=== PATIENT | male | born 1975 | race Caucasian/White ===

== ENCOUNTER 2017-10-25 08:36 | Day surgery (SDC) | payer OTHER ==
[~2017-10-25 08:36] MED LIST: Acetaminophen/HYDROcodone 325-10 MG Tab PO PRN; Ketorolac 10 MG Tab PO PRN; Lactated Ringers 1,000 ML IV SCH; ceFAZolin 2 GM in Premix Bag 1 BAG IV SCH
[2017-10-25] MEDS ORDERED: fentaNYL 250 MCG/5 ML SDV ONE (08:41)
[2017-10-25] MEDS ORDERED: Midazolam 1 MG/ML 2 ML SDV ONE (08:41)
[2017-10-25] MEDS ORDERED: Propofol 200 MG/20 ML SDV ONE (08:41)
[2017-10-25] MEDS ORDERED: Ondansetron 4 MG/2 ML SDV ONE (08:44)
[2017-10-25] MEDS ORDERED: Dexamethasone 4 MG/ML 5 ML MDV ONE (08:44)
[2017-10-25] MEDS ORDERED: Bupivacaine 0.25% 10 ML SDV ONE (09:16)
[2017-10-25] MEDS ORDERED: ceFAZolin/Dextrose,Iso-Osmotic 2 GM/50 ML Duplex Bag IV ONE (09:19)
[2017-10-25] MEDS ORDERED: Phenylephrine 1% 10 MG/ML SDV ONE (09:22)
[2017-10-25] MEDS ORDERED: Rocuronium 10 MG/ML 10 ML Syringe ONE (09:25)
[2017-10-25] MEDS ORDERED: Succinylcholine 200 MG/10 ML MDV ONE (09:25)
[2017-10-25] MEDS ORDERED: Neostigmine Methylsulfate 1 MG/ML 5 ML Syringe ONE (09:26)
[2017-10-25] MEDS ORDERED: Glycopyrrolate 0.2 MG/ML SDV ONE (09:26)
--- NOTE | 2017-10-25 09:35 | PCM.PREANE ---
Preanesthetic Assessment - Procedure Proposed Procedure: left biceps tendon repair - Anesthesia/Transfusion/Family Hx Anesthesia History: Prior Anesthesia Without Reaction Family History of Anesthesia Reaction: No Transfusion History: No Prior Transfusion(s) Intubation History: Unknown - Review of Systems General: No Symptoms Pulmonary: No Symptoms Cardiovascular: No Symptoms Gastrointestinal: Other (GERD) Neurological: Pre-Existing Deficit (left arm pain after extension injury - see HPI) Other: Reports: None - Physical Assessment NPO Status Date: 10/24/17 NPO Status Time: 22:00 O2 Sat by Pulse Oximetry: 98 Respiratory Rate: 20 Vital Signs: Last Vital Signs Temp 99.5 F 10/25/17 08:55 Pulse 63 10/25/17 08:55 Resp 20 10/25/17 08:55 BP 140/74 10/25/17 08:55 Pulse Ox 98 10/25/17 08:55 Height: 5 ft 10 in Weight: 215 lb ASA Class: 2 Mental Status: Alert & Oriented x3 Airway Class: Mallampati = 2 Dentition: Reports: Normal Dentition Thyro-Mental Finger Breadths: 3 Mouth Opening Finger Breadths: 3 ROM/Head Extension: Full Lungs: Clear to Auscultation, Normal Respiratory Effort Cardiovascular: Regular Rate, Regular Rhythm, No Murmurs - Allergies Allergies/Adverse Reactions: Allergies Allergy/AdvReac Type Severity Reaction Status Date / Time No Known Allergies Allergy Verified 10/20/17 11:58 - Blood Blood Available: No Product(s) Available: None - Anesthesia Plan Pre-Op Medication Ordered: None - Acknowledgements Anesthesia Type Planned: General Anesthesia (OET) Pt an Appropriate Candidate for the Planned Anesthesia: Yes Alternatives and Risks of Anesthesia Discussed w Pt/Guardian: Yes Pt/Guardian Understands and Agrees with Anesthesia Plan: Yes PreAnesthesia Questionnaire Gastrointestinal History: Reports: GERD Musculoskeletal History: Reports: Fracture Endocrine/Metabolic History: Reports: Obesity/BMI 30+ - Past Surgical History Head Surgeries/Procedures: Reports: None Musculoskeletal Surgical History: Reports: Other (See Below) Other Musculoskeletal Surgeries/Procedures:: surgical tx for fx left ankle with plate and screws - SUBSTANCE USE Smoking Status *Q: Never Smoker Tobacco Use Within Last Twelve Months: Other (See Below) Days Per Week of Alcohol Use: 7 Number of Drinks Per Day: 5 Total Drinks Per Week: 35 Recreational Drug Use History: No - HOME MEDS Home Medications: Home Meds Omeprazole Magnesium 20 mg PO DAILY 10/20/17 [History] - CURRENT (IN HOUSE) MEDS Current Meds: Current Medications Hydrocodone Bitart/Acetaminophen (Dexter 325-10 Mg) 1 - 2 tab PO Q4H PRN PRN Reason: Pain Fentanyl (Sublimaze) 50 mcg IVPUSH Q5M PRN PRN Reason: Pain (moderate 4-6) Stop: 10/25/17 14:00 Cefazolin Sodium/Dextrose 2 gm (/ Premix) 50 mls @ 100 mls/hr IV ONCALL [facility] Lactated Ringer's (Ringers, Lactated) 1,000 mls @ 100 mls/hr IV ASDIRECTED [facility] Last Admin: 10/25/17 08:55 Dose: 100 mls/hr Ketorolac Tromethamine (Toradol) 10 mg PO Q6H PRN PRN Reason: Pain Stop: 10/30/17 08:01 Discontinued Medications Bupivacaine HCl (Sensorcaine-Mpf 0.25%) Confirm Administered Dose 10 ml .ROUTE .STK-MED ONE Stop: 10/25/17 09:17 Cefazolin Sodium/Dextrose (Ancef) Confirm Administered Dose 2 gm IV .STK-MED ONE Stop: 10/25/17 09:20 Dexamethasone (Dexamethasone) Confirm Administered Dose 20 mg .ROUTE .STK-MED ONE Stop: 10/25/17 08:45 Fentanyl (Sublimaze) Confirm Administered Dose 250 mcg .ROUTE .STK-MED ONE Stop: 10/25/17 08:42 Glycopyrrolate (Robinul) Confirm Administered Dose 0.4 mg .ROUTE .STK-MED ONE Stop: 10/25/17 09:27 Midazolam HCl (Versed 1 Mg/Ml) Confirm Administered Dose 2 mg .ROUTE .STK-MED ONE Stop: 10/25/17 08:42 Neostigmine Methylsulfate (Neostigmine) Confirm Administered Dose 5 mg .ROUTE .STK-MED ONE Stop: 10/25/17 09:27 Ondansetron HCl (Zofran) Confirm Administered Dose 4 mg .ROUTE .STK-MED ONE Stop: 10/25/17 08:45 Phenylephrine HCl (Ryan-Synephrine) Confirm Administered Dose 10 mg .ROUTE .STK- MED ONE Stop: 10/25/17 09:23 Propofol (Diprivan 20 Ml) Confirm Administered Dose 200 mg .ROUTE .STK-MED ONE Stop: 10/25/17 08:42 Rocuronium Condon (Zemuron) Confirm Administered Dose 100 mg .ROUTE .STK-MED ONE Stop: 10/25/17 09:26 Succinylcholine Chloride (Quelicin) Confirm Administered Dose 200 mg .ROUTE .STK -MED ONE Stop: 10/25/17 09:26
[2017-10-25] MEDS: fentaNYL 100 MCG/2 ML SDV IVPUSH PRN ×4 (12:00→12:39)
--- NOTE | 2017-10-25 12:01 | PCM.OPNOTE ---
- General Post-Op/Procedure Note Date of Surgery/Procedure: 10/25/17 Operative Procedure(s): Open repair left distal biceps tendon Post-Op Diagnosis: left distal biceps tendon repair Anesthesia Technique: General ET Tube Primary Surgeon: Abi Mejia Bilingual Hr Generalist: Omayra Contreras Bilingual Hr Generalist: Alexy Goldsmith in mLs: 10 Condition: Good Free Text/Narrative:: tt=0 min #[id number]
--- NOTE | 2017-10-25 12:30 | PCM.POSTAN ---
POST ANESTHESIA ASSESSMENT - MENTAL STATUS Mental Status: Alert, Oriented - RESPIRATORY Respiratory Status: Respiratory Rate WNL, Airway Patent, O2 Saturation Stable - CARDIOVASCULAR CV Status: Pulse Rate WNL, Blood Pressure Stable - GASTROINTESTINAL GI Status: No Symptoms - POST OP HYDRATION Hydration Status: Adequate & Stable
--- NOTE | 2017-10-25 13:31 | PCM48HPAN ---
Post Anesthesia Note - EVALUATION WITHIN 48HRS OF ANESTHETIC Vital Signs in Normal Range: Yes Patient Participated in Evaluation: Yes Respiratory Function Stable: Yes Airway Patent: Yes Cardiovascular Function Stable: Yes Hydration Status Stable: Yes Pain Control Satisfactory: Yes Nausea and Vomiting Control Satisfactory: Yes Mental Status Recovered: Yes Resp Rate: 16
--- NOTE | 2017-10-25 14:46 | OR ---
SURGEON: Abi Mejia MD DATE OF PROCEDURE: 10/25/2017 PREOPERATIVE DIAGNOSIS: Left distal biceps tendon rupture. POSTOPERATIVE DIAGNOSIS: Left distal biceps tendon rupture. PROCEDURE: Open repair of left distal biceps tendon. ASSISTANTS: Omayra Contreras PA-C and Alexy Goldsmith MD, PGY2. ANESTHESIA: General. ESTIMATED BLOOD LOSS: 10 mL. TOURNIQUET TIME: 0 minutes. COMPLICATIONS: None. DVT PROPHYLAXIS: PAS boots to bilateral lower extremity. IMPLANTS USED: Biomet 2.9 mm ToggleLoc with #2 MaxBraid. BRIEF HISTORY: Davion is a 42-year-old right-hand dominant male who injured his left upper extremity while at work. An MRI did confirm a rupture of the distal biceps tendon. Due to his lack of response to conservative treatment, I did recommend surgical intervention. The risks and goals of the procedure were discussed with the patient and were documented preoperatively. He agreed to proceed. DESCRIPTION OF PROCEDURE: The patient was properly identified and brought to the operating room. He was transferred from the OR cart and placed on the operating table in supine position. General anesthesia was administered. After adequate anesthesia was obtained, the left upper extremity was prepped in standard fashion using ChloraPrep solution. It was then sterilely draped. A time-out was performed to ensure correct site and procedure. Preoperative antibiotics were given. The surgical site had been marked preoperatively. An incision was made approximately 3-cm distal to the antecubital fossa in a transverse fashion. Subcutaneous tissues were dissected down to the level of the muscle. Electrocautery was used to maintain hemostasis. I did look for the lateral antebrachial cutaneous nerve, however, this was not encountered. I then followed the path of the biceps tendon into the upper arm. He did have a large amount of hematoma that had partially coagulated. This hematoma was able to be expressed through the wound. The tip of the biceps tendon was palpable. I did not want to blindly reach in through the incision to bring the distal biceps tendon into the wound. I did make a small incision over where I could palpate the distal biceps tendon. The subcutaneous tissues were incised until I could palpate the biceps tendon. This was then delivered into the wound. Vicryl sutures were then passed through this to help with transfer. The biceps was then passed through the proximal wound into the distal wound without difficulty. The tendon was then sized to an 8 mm diameter. The ToggleLoc with the zip loop was fastened to the tendon after an Express Braid was used to capture the distal portion of the tendon measuring approximately 20 mm. The tendon was then allowed to retract back into the upper arm to maintain moisture. I then turned my attention distally. The deep tissues were dissected down to the level of the biceps tuberosity. C-arm imaging did confirm that we were at the biceps tuberosity as the area over this was cleared. I was able to see a remnant of the biceps tendon remaining. Care was taken throughout the procedure to work subperiosteally to help protect the posterior interosseous nerve. The guide pin was then passed bi-cortically. This was passed in an approximately 30 degrees ulna trajectory to help protect the PIN nerve. Following this, an 8-mm reamer was used to ream 1 cortice of the radius. The reamer was kept in place as the ToggleLoc button was passed. This was deployed on the opposite cortex. C-arm imaging did confirm that the ToggleLoc had been deployed on the outer cortex. The ToggleLoc suture was then cinched and the biceps tendon was brought into the prepared bony tunnel. The ToggleLoc did not allow any further advancement. However, the graft was within the prepared tunnel and it was felt that this was appropriate tensioning. The wound was copiously irrigated with saline solution to remove any bony debris. The arm was then taken through a range of motion while palpating the tendon. I was able to get him to full extension on the table with full supination. The suture ends were then clipped. The subcutaneous tissues were closed with 3-0 Vicryl on both wounds. The skin was closed with a running 4-0 Monocryl suture. Steri-Strips and Benzoin were placed. Marcaine 0.5% was injected along the incision site at the completion of the procedure. Xeroform gauze was placed over the wound and a bulky dressing was applied. He was placed in a well-padded posterior splint. He was awakened from his anesthetic and transferred back to the operating room cart. He was brought to recovery room in stable condition. All needle and sponge counts were correct. BK / TOD /[id number] GURDEEP
--- NOTE | 2017-10-25 16:21 | CR ---
EXAMINATION: Left elbow HISTORY: Biceps repair COMPARISON: MRI dated 10/15/2017 TECHNIQUE: Single view FINDINGS/IMPRESSION: Single operative control film demonstrates instrumentation and postoperative brennan nges projecting over the left elbow.
== END 2017-10-25 13:40 | disposition home or self-care (01) ==
LOC: MW.SDS 08:36
PROVIDERS: ATTEND Orthopaedic Surgery
DX: S46.212A Strain of muscle, fascia and tendon of other parts of biceps, left arm, initial encounter (principal); E66.9 Obesity, unspecified; K21.9 Gastro-esophageal reflux disease without esophagitis; Z87.891 Personal history of nicotine dependence; Z79.899 Other long term (current) drug therapy; X50.0XXA Overexertion from strenuous movement or load, initial encounter
CPT/HCPCS: 24342; 76000; J0330; J0690; J1100; J2250; J2370; J2405; J2704; J3010; J3490; J7120; 01710

== ENCOUNTER 2018-09-16 06:20 | Day surgery (SDC) | payer OTHER ==
[~2018-09-16 06:20] MED LIST changes: -Acetaminophen/HYDROcodone 325-10 MG Tab PO PRN; -Ketorolac 10 MG Tab PO PRN; -ceFAZolin 2 GM in Premix Bag 1 BAG IV SCH
--- NOTE | 2018-09-16 06:50 | PCM.PREANE ---
Preanesthetic Assessment - Anesthesia/Transfusion/Family Hx Anesthesia History: Prior Anesthesia Without Reaction Family History of Anesthesia Reaction: No Transfusion History: No Prior Transfusion(s) Intubation History: Unknown - Review of Systems General: No Symptoms Pulmonary: No Symptoms Cardiovascular: No Symptoms Gastrointestinal: Abdominal Pain, Other (acid reflux) Neurological: No Symptoms Other: Reports: None - Physical Assessment O2 Sat by Pulse Oximetry: 98 Respiratory Rate: 14 Vital Signs: Last Vital Signs Temp 36.2 C 09/16/18 06:39 Pulse 86 09/16/18 06:39 Resp 14 09/16/18 06:39 BP 148/97 H 09/16/18 06:39 Pulse Ox 98 09/16/18 06:39 Height: 5 ft 10 in Weight: 102.058 kg ASA Class: 2 Mental Status: Alert & Oriented x3 Airway Class: Mallampati = 2 Dentition: Reports: Normal Dentition Thyro-Mental Finger Breadths: 3 Mouth Opening Finger Breadths: 3 ROM/Head Extension: Full Lungs: Clear to Auscultation, Normal Respiratory Effort Cardiovascular: Regular Rate, Regular Rhythm - Allergies Allergies/Adverse Reactions: Allergies Allergy/AdvReac Type Severity Reaction Status Date / Time hydrocodone Allergy Headache Verified 09/13/18 16:15 - Blood Blood Available: No - Anesthesia Plan Pre-Op Medication Ordered: None - Acknowledgements Anesthesia Type Planned: MAC Pt an Appropriate Candidate for the Planned Anesthesia: Yes Alternatives and Risks of Anesthesia Discussed w Pt/Guardian: Yes Pt/Guardian Understands and Agrees with Anesthesia Plan: Yes PreAnesthesia Questionnaire HEENT History: Reports: Allergic Rhinitis Cardiovascular History: Reports: High Cholesterol, Hypertension Respiratory History: Reports: Other (See Below) Other Respiratory History: thinks he might have sleep apnea Gastrointestinal History: Reports: GERD, PUD, Other (See Below) (h/o elevated liver enzymes) Musculoskeletal History: Reports: Fracture Other Musculoskeletal History: left ankle Neurological History: Reports: Headaches, Chronic Other Neuro History: thinks that headaches are sinus related Endocrine/Metabolic History: Reports: Obesity/BMI 30+ - Past Surgical History Head Surgeries/Procedures: Reports: None Musculoskeletal Surgical History: Reports: ORIF, Other (See Below) Other Musculoskeletal Surgeries/Procedures:: ORIF left ankle, Left Biceps Tendon Repair - SUBSTANCE USE Smoking Status *Q: Former Smoker Tobacco Use Within Last Twelve Months: Snuff/Dip Days Per Week of Alcohol Use: 7 Number of Drinks Per Day: 5 Total Drinks Per Week: 35 Recreational Drug Use History: No - HOME MEDS Home Medications: Home Meds Cetirizine [ZyrTEC] 10 mg PO DAILY 09/13/18 [History] Esomeprazole Magnesium 40 mg PO ACBREAKFAST 09/13/18 [History] - CURRENT (IN HOUSE) MEDS Current Meds: Current Medications Lactated Ringer's (Ringers, Lactated) 1,000 mls @ 125 mls/hr IV ASDIRECTED [facility] Last Admin: 09/16/18 06:43 Dose: 125 mls/hr
[2018-09-16] MEDS ORDERED: Midazolam 1 MG/ML 2 ML SDV ONE (06:54)
[2018-09-16] MEDS ORDERED: Propofol 200 MG/20 ML SDV ONE (06:54)
[2018-09-16] MEDS ORDERED: Lidocaine 2% 5 ML SDV ONE (06:54)
[2018-09-16] MEDS ORDERED: fentaNYL 100 MCG/2 ML SDV ONE (06:54)
--- NOTE | 2018-09-16 08:14 | PCM.OPNOTE ---
- General Post-Op/Procedure Note Date of Surgery/Procedure: 09/16/18 Operative Procedure(s): egd w bx Findings: see dict [id number] Pre Op Diagnosis: gerd Post-Op Diagnosis: Same Anesthesia Technique: Moderate Sedation Primary Surgeon: Yousif Dolan Pathology: egd bx Complications: None Condition: Good
--- NOTE | 2018-09-16 08:31 | PCM48HPAN ---
Post Anesthesia Note - EVALUATION WITHIN 48HRS OF ANESTHETIC Vital Signs in Normal Range: Yes Patient Participated in Evaluation: Yes Respiratory Function Stable: Yes Airway Patent: Yes Cardiovascular Function Stable: Yes Hydration Status Stable: Yes Pain Control Satisfactory: Yes Nausea and Vomiting Control Satisfactory: Yes Mental Status Recovered: Yes Resp Rate: 12 - COMMENTS/OBSERVATIONS Free Text/Narrative:: no anesthesia problems
--- NOTE | 2018-09-16 11:41 | OR ---
SURGEON: Yousif Dolan MD DATE OF PROCEDURE: 09/16/2018 PREOPERATIVE DIAGNOSIS: Recurrent gastroesophageal reflux disease. POSTOPERATIVE DIAGNOSES: Possible gastroparesis and gastroesophageal reflux disease. PROCEDURE PERFORMED: Esophagogastroduodenoscopy with biopsy. DESCRIPTION OF PROCEDURE: EGD: The patient was taken to the endoscopy room, and with the DYE REEL OPERATOR, Diprivan was administered. A well-lubricated EGD scope was gently inserted through the oropharynx, down the esophagus, passing through the gastroesophageal junction, into the stomach. The mucosa was examined upon the passage. Any etiology will be noted. Once in the stomach, we continued to advance to the distal antrum, passed through the pylorus into the second portion of the duodenum. Again, the mucosa was examined for any abnormality and etiology. The scope was then retrieved back to the stomach and then retroflexed to look at the fundus of the stomach. If a biopsy was indicated, we will biopsy the antrum, body, and gastroesophageal junction. The air will be sucked out while the scope is retrieved to reduce the patient's discomfort. The patient tolerated the procedure well. There were no intraoperative complications. Dr. Dolan was present through the whole procedure. Prior to surgery, a time-out had been called, the patient identified, procedure identified and antibiotic administered. FINDINGS: 1. The patient is easily sedated with DYE REEL OPERATOR and Diprivan, the patient is soundly snoring. 2. Oropharynx and proximal esophagus are free of disease, inflammation, or stricture. Distal esophagus with some food particle there at the GE junction. Does not seem to be impacted and also with very significant salmon-colored change suggestive of significant GERD and with flame-like structure. Stomach, has a lot of food in the stomach, undigested food. Rugae are normal in appearance. Antrum is quite inflamed. Duodenum is also inflamed. Retroflexed look at the fundus of the stomach, there is no hiatal hernia. Biopsy done at antrum, body, and GE junction at 40 and sucked out the gas while scope coming out, and during the whole study, there is no bile observed and there is no blood. There is no madalyn ulcer, but a lot of food. RALPH / TOD /[id number]
== END 2018-09-16 08:39 | disposition home or self-care (01) ==
LOC: MW.SDS 06:20
PROVIDERS: ATTEND Surgery
DX: K21.0 Gastro-esophageal reflux disease with esophagitis (principal); K29.50 Unspecified chronic gastritis without bleeding; K29.80 Duodenitis without bleeding; I10 Essential (primary) hypertension; E78.00 Pure hypercholesterolemia, unspecified; E66.9 Obesity, unspecified; Z68.32 Body mass index [BMI] 32.0-32.9, adult; Z88.5 Allergy status to narcotic agent; Z87.11 Personal history of peptic ulcer disease; Z87.891 Personal history of nicotine dependence; Z79.899 Other long term (current) drug therapy
CPT/HCPCS: 00731; J2001; J2250; J2704; J3010; J7120